=== PATIENT | female | born 1945 | race African-American/Black ===

== ENCOUNTER 2018-09-12 09:51 | Inpatient (IN) | payer MEDICARE, MEDICAID ==
[~2018-09-12] VITALS: Ht 157.5 cm; Wt 121.1 kg
[~2018-09-12 09:51] MED LIST: AMLO10TA80 PO; ATOR20TA PO; B50 PO; BIOT5000 PO; CIME400T PO; CLOP75TA4 PO; DOCU250C69 PO; FERR-63 PO; FURO40TA5 PO; GABA400C PO; GLIP5TAB12 PO; OMEP20CA4 PO; QUET200T PO
[2018-09-12] MEDS ORDERED: MORPHINE SULFATE 4 MG/ML CPJ (NOT FOR IM USE) IV STA (10:30)
[2018-09-12] MEDS ORDERED: ONDANSETRON HCL 4MG/2ML INJ IV STA (10:30)
[2018-09-12 10:50] LABS: BASOPHILS % 0.5 % (0.0-2.0); EOSINOPHILS % 1.2 % (0.0-5.0); HEMATOCRIT. 37.2 % (36.0-48.0); HEMOGLOBIN. 12.3 g/dL (12.0-16.0); MEAN CORPUSCULAR HEMOGLOBIN 33.1 pg (28.0-32.0); MEAN CORPUSCULAR VOLUME 100.4 fL (81.0-99.0); MEAN PLATELET VOLUME 9.2 fl (7.4-10.4); MONOCYTES % 6.6 % (2.0-8.0); NEUTROPHILS % 78.7 % (40.0-76.0); PLATELET 184 x1000/uL (130-400); RED BLOOD CELL COUNT 3.71 mill/uL (4.2-5.4)
[2018-09-12 10:57] LABS: CHLORIDE 101 mEq/L (98-107)
[2018-09-12 10:58] LABS: INR 0.9; PROTHROMBIN TIME 9.5 sec (9.6-11.0)
[2018-09-12 11:21] LABS: CLARITY URINE CLEAR (CLEAR); COLOR URINE YELLOW (YELLOW); KETONES URINE NEGATIVE (NEGATIVE); LEUKOCYTE ESTERASE URINE NEGATIVE (NEGATIVE); NITRITE URINE NEGATIVE (NEGATIVE); OCCULT BLOOD URINE NEGATIVE (NEGATIVE); PH URINE 6.5 (4.5-8.0); PROTEIN URINE 2+ (NEGATIVE); SPECIFIC GRAVITY URINE 1.007 (1.005-1.030); UROBILINOGEN URINE 0.2 E.U./dL (0.2-1.0)
[2018-09-12 16:00] VITALS: BP 123/72
[2018-09-12] MEDS ORDERED: ACETAMINOPHEN 325MG TABLET PO PRN (16:45)
[2018-09-12] MEDS ORDERED: MAGNESIUM/ALUMINUM HYDROXIDE/SIMETHICONE 30ML UDC PO PRN (16:45)
[2018-09-12] MEDS ORDERED: DEXTROSE 50% WATER 50ML SYRINGE IV PRN (16:45)
[2018-09-12] MEDS ORDERED: GUAIFENESIN 200MG/10ML SUGAR FREE UDC PO PRN (16:45)
[2018-09-12] MEDS ORDERED: ONDANSETRON HCL 4MG/2ML INJ IV PRN (16:45)
[2018-09-12] MEDS ORDERED: IPRATROPIUM/ALBUTEROL 0.5-3(2.5)MG/3ML NEB INH PRN (16:45)
[2018-09-12] MEDS ORDERED: DIPHENHYDRAMINE 50MG/ML VIAL IV PRN (16:45)
[2018-09-12] MEDS ORDERED: LORAZEPAM 0.5MG TABLET PO PRN (16:45)
[2018-09-12] MEDS: BLOOD SUGAR DIAGNOSTIC STRIP TEST SCH ×2 (17:44→20:54)
[2018-09-12] MEDS ORDERED: KETOROLAC 30MG/ML VIAL IV PRN ×2 (17:45→19:45)
[2018-09-12] MEDS ORDERED: HYDROCODONE/ACETAMINOPHEN 5/325MG TABLET PO PRN (17:45)
[2018-09-12] MEDS: INSULIN LISPRO 100 UNITS/ML SUBCUT SCH ×2 (17:50→21:26)
[2018-09-12] MEDS ORDERED: ENOXAPARIN 40MG/0.4ML SYR SUBCUT SCH (18:00)
[2018-09-12 18:34] VITALS: BP 123/72
[2018-09-12] MEDS ORDERED: TEMAZEPAM 15MG CAPSULE PO PRN (19:45)
[2018-09-12] MEDS ORDERED: PROCHLORPERAZINE 10MG/2ML VIAL IV PRN (19:45)
[2018-09-12 20:00] VITALS: BP 130/55
[2018-09-12] MEDS ORDERED: IPRATROPIUM/ALBUTEROL 0.5-3(2.5)MG/3ML NEB HHN SCH (20:00)
[2018-09-12] MEDS ORDERED: MAGNESIUM HYDROXIDE 400MG/5ML 30ML UDC PO PRN (20:00)
[2018-09-12] MEDS: OMEPRAZOLE 20MG CAPSULE EXTENDED RELEASE PO SCH (20:50)
[2018-09-12] MEDS ORDERED: QUETIAPINE FUMARATE 50MG TABLET PO SCH (21:00)
[2018-09-12] MEDS: BUDESONIDE 0.5MG/2ML NEB HHN SCH (21:42)
[2018-09-12] MEDS: IPRATROPIUM/ALBUTEROL 0.5-3(2.5)MG/3ML NEB HHN SCH (21:42)
[2018-09-12] MEDS: GABAPENTIN 100MG CAPSULE PO SCH (22:07)
[2018-09-12] MEDS: SODIUM CHLORIDE 0.9% INJ 3ML FLUSH IVF SCH (22:08)
[2018-09-13] VITALS: BP 118/53
[2018-09-13 04:00] VITALS: BP 112/50
[2018-09-13] MEDS: SODIUM CHLORIDE 0.9% INJ 3ML FLUSH IVF SCH (06:06)
[2018-09-13 06:14] LABS: BASOPHILS % 0.4 % (0.0-2.0); EOSINOPHILS % 4.2 % (0.0-5.0); HEMATOCRIT. 37.5 % (36.0-48.0); HEMOGLOBIN. 12.1 g/dL (12.0-16.0); LYMPHOCYTES % 22.2 % (20.0-50.0); MEAN CORPUSCULAR HEMOGLOBIN 32.5 pg (28.0-32.0); MEAN CORPUSCULAR VOLUME 100.8 fL (81.0-99.0); MEAN PLATELET VOLUME 9.7 fl (7.4-10.4); MONOCYTES % 7.9 % (2.0-8.0); NEUTROPHILS % 65.3 % (40.0-76.0); PLATELET 176 x1000/uL (130-400); RED BLOOD CELL COUNT 3.71 mill/uL (4.2-5.4); RED CELL DISTRIBUTION WIDTH 13.2 % (11.6-14.6)
[2018-09-13 06:22] LABS: CHLORIDE 102 mEq/L (98-107)
[2018-09-13] MEDS: GABAPENTIN 100MG CAPSULE PO SCH (06:32)
[2018-09-13] MEDS: INSULIN LISPRO 100 UNITS/ML SUBCUT SCH ×2 (06:33→12:30)
[2018-09-13] MEDS: OMEPRAZOLE 20MG CAPSULE EXTENDED RELEASE PO SCH (06:33)
[2018-09-13] MEDS: BLOOD SUGAR DIAGNOSTIC STRIP TEST SCH ×2 (06:33→12:30)
[2018-09-13] MEDS ORDERED: GLYBURIDE 5MG TABLET PO SCH (07:20)
[2018-09-13 08:00] VITALS: BP 118/64
[2018-09-13] MEDS ORDERED: DOCUSATE SODIUM 250MG CAPSULE PO SCH (09:00)
[2018-09-13] MEDS ORDERED: AMLODIPINE 10MG TABLET PO SCH (09:00)
[2018-09-13] MEDS: IPRATROPIUM/ALBUTEROL 0.5-3(2.5)MG/3ML NEB HHN SCH (09:04)
[2018-09-13] MEDS: BUDESONIDE 0.5MG/2ML NEB HHN SCH (09:05)
[2018-09-13] MEDS ORDERED: POTASSIUM CHLORIDE 20MEQ TABLET SR PO NR (09:15)
[2018-09-13 10:00] VITALS: BP 122/62
[2018-09-13 12:00] VITALS: BP 114/61
[2018-09-13 12:39] VITALS: BP 114/61
[2018-09-13] MEDS ORDERED: ENOXAPARIN 40MG/0.4ML SYR SUBCUT SCH (18:00)
== END 2018-09-13 12:51 | disposition home or self-care (01) ==
LOC: ER 10:10 → 6EST 14:28 → EDBEDREQ 14:30 → EDBEDREQSVC 14:30 → ENRESERV 15:28
PROVIDERS: ADMIT Internal Medicine; ATTEND Internal Medicine
DX: K80.20 Calculus of gallbladder without cholecystitis without obstruction (principal); I11.0 Hypertensive heart disease with heart failure; C78.02 Secondary malignant neoplasm of left lung; C78.01 Secondary malignant neoplasm of right lung; I50.9 Heart failure, unspecified; E66.01 Morbid (severe) obesity due to excess calories; F20.9 Schizophrenia, unspecified; G62.9 Polyneuropathy, unspecified; E11.9 Type 2 diabetes mellitus without complications; F41.1 Generalized anxiety disorder; J44.9 Chronic obstructive pulmonary disease, unspecified; F99 Mental disorder, not otherwise specified; M19.90 Unspecified osteoarthritis, unspecified site; K21.9 Gastro-esophageal reflux disease without esophagitis; Z72.0 Tobacco use; Z82.49 Family history of ischemic heart disease and other diseases of the circulatory system; Z83.3 Family history of diabetes mellitus; Z68.42 Body mass index [BMI] 45.0-49.9, adult; C80.1 Malignant (primary) neoplasm, unspecified
CPT/HCPCS: 36415; 71045; 71250; 76705; 78227; 82105; 82378; 82962; 83880; 84484; 93005; 94640; 96374; 96375; 99285; A9537; J1650; J1815; J1885; J2270; J2405; J7620; J7626

== ENCOUNTER 2018-10-26 07:32 | Day surgery (SDC) | payer MEDICARE, MEDICAID ==
[~2018-10-26] VITALS: Ht 154.9 cm; Wt 117.9 kg
[2018-10-26] VITALS (17 sets, daily range): BP systolic 126–174; BP diastolic 68–99
[2018-10-26] MEDS ORDERED: SODIUM BICARBONATE 4% (2.4MEQ) 5ML VIAL IV ONE (08:05)
[2018-10-26] MEDS ORDERED: FENTANYL CITRATE/PF 50MCG/ML 2ML VIAL ONE (08:05)
[2018-10-26] MEDS ORDERED: LIDOCAINE HCL 1% 20ML VIAL (Pyxis) INJ ONE ×2 (08:05→08:59)
[2018-10-26] MEDS ORDERED: HYDROCODONE/ACETAMINOPHEN 5/325MG TABLET PO PRN (09:00)
[2018-10-26] MEDS ORDERED: FENTANYL CITRATE/PF 50MCG/ML 2ML VIAL IV ONE (09:30)
[2018-10-26] MEDS ORDERED: OMEPRAZOLE 20MG CAPSULE EXTENDED RELEASE PO NR (12:00)
[2018-10-26] MEDS ORDERED: ONDANSETRON HCL 4MG/2ML INJ ONE (12:29)
[2018-10-26] MEDS ORDERED: ONDANSETRON HCL 4MG/2ML INJ IV ONE (12:35)
== END 2018-10-26 12:45 | disposition home or self-care (01) ==
LOC: RAD 07:32
PROVIDERS: ATTEND Internal Medicine
DX: C78.6 Secondary malignant neoplasm of retroperitoneum and peritoneum (principal); K68.9 Other disorders of retroperitoneum; R91.1 Solitary pulmonary nodule
CPT/HCPCS: 38505; 77012; 82962; 88305; 99152; 99153; J2405; J3010; J3490